=== PATIENT | female | born 1950 | race Native Hawaiian/Other Pacific Islander ===

== ENCOUNTER 2017-01-06 11:17 | Outpatient (CLI) | payer OTHER ==
[~2017-01-06 11:17] MED LIST: ADIPEX PO; ADIPEX-P37.5 M1 OR; DULO60CA2 OR; HYDR25TA60 PO; LISI20TA24 PO; NEXIUM40 M1 PO; XANAX XR0.5 MG OR
== END 2017-01-06 19:14 | disposition home or self-care (01) ==
LOC: RAD 11:17
DX: M25.512 Pain in left shoulder (principal)

== ENCOUNTER 2017-01-13 13:31 | Outpatient (CLI) | payer OTHER | END 2017-01-13 14:45 | disposition home or self-care (01) | LOC: MRI 13:31 | DX: G25.0 Essential tremor (principal); R26.89 Other abnormalities of gait and mobility ==

== ENCOUNTER 2020-10-03 08:51 | Outpatient (CLI) | payer OTHER | END 2020-10-03 23:42 | disposition home or self-care (01) | LOC: CT 08:51 | PROVIDERS: ATTEND Internal Medicine | DX: R13.19 Other dysphagia (principal); R09.89 Other specified symptoms and signs involving the circulatory and respiratory systems | CPT/HCPCS: 36415; 82565; 84520; Q9963 ==

== ENCOUNTER 2020-12-05 09:47 | Outpatient (CLI) | payer OTHER | END 2020-12-05 21:28 | disposition home or self-care (01) | LOC: RESP 09:47 | PROVIDERS: ATTEND Specialist | DX: I10 Essential (primary) hypertension (principal); R42 Dizziness and giddiness; R00.2 Palpitations; R06.09 Other forms of dyspnea; R07.89 Other chest pain ==

== ENCOUNTER 2020-12-10 09:33 | Outpatient (CLI) | payer OTHER ==
[~2020-12-10] VITALS: Ht 30.5 cm; Wt 0.5 kg
== END 2020-12-10 19:10 | disposition home or self-care (01) ==
LOC: NM 09:33
PROVIDERS: ATTEND Specialist
DX: R06.09 Other forms of dyspnea (principal); R07.89 Other chest pain; R42 Dizziness and giddiness; R00.2 Palpitations; R53.83 Other fatigue
CPT/HCPCS: A9500; J2785

== ENCOUNTER 2022-01-06 13:41 | Outpatient (CLI) | payer OTHER, MEDICARE | END 2022-01-06 19:46 | disposition home or self-care (01) | LOC: RAD 13:41 | PROVIDERS: ATTEND Internal Medicine | DX: Z13.820 Encounter for screening for osteoporosis (principal); N95.8 Other specified menopausal and perimenopausal disorders ==